=== PATIENT | male | born 1950 | race Caucasian/White ===

== ENCOUNTER → 2021-10-21 | Outpatient (CLI) | payer OTHER ==
[~2021-10-21] MED LIST: ASPI81EC; ATEN50; DIOVAN/HCTZ; DOXA4; FURO40
== END ==
LOC: LAB SHORT 07:25 → LAB 07:25 → PLD 07:25
DX: D48.5 Neoplasm of uncertain behavior of skin (principal)
CPT/HCPCS: 88312